=== PATIENT | female | born 1995 | race Caucasian/White ===

== ENCOUNTER 2022-01-11 11:09 | Emergency (ER) | payer MEDICAID ==
[~2022-01-11] VITALS: Ht 170.2 cm; Wt 165.0 kg
[2022-01-11 11:39] VITALS: BP 106/56
[2022-01-11] MEDS ORDERED: METR70GE5 VG (13:50)
[2022-01-11] MEDS ORDERED: DIF15 MT (13:50)
[2022-01-11] MEDS ORDERED: MICO15CR9 VG (13:50)
== END 2022-01-11 14:12 | disposition home or self-care (01) ==
LOC: ER 12:35
DX: N76.0 Acute vaginitis (principal)
CPT/HCPCS: 99284